=== PATIENT | male | born 1970 | race American Indian/Alaskan Native ===

== ENCOUNTER 2018-09-28 14:08 | Emergency (ER) | payer OTHER ==
[2018-09-28 14:21] VITALS: BMI 29.2
--- NOTE | 2018-09-28 16:09 | ED PDOC ---
Arrival/HPI - General Chief Complaint: Lower Extremity Problem/Injury Historian: Patient - History of Present Illness Narrative History of Present Illness (Text): 09/28/18 15:56 48yo male with no pmhx who present with complaint of left inner thigh pain that radiates posteriorly to his proximal lower leg x one week. Describes pain as throbbing and intermittent. No relieving/exacerbating factors. Denies trauma, calf pain, chest pain, SOB, lower back pain, saddle anesthesia, fever, chills ,swelling, redness, any other complaint. Past Medical History - Provider Review Nursing Documentation Reviewed: Yes - Psychiatric Hx Substance Use: Yes Family/Social History - Physician Review Nursing Documentation Reviewed: Yes Family/Social History: Unknown Family HX Smoking Status: Heavy Smoker > 10 Cigarettes Daily Hx Alcohol Use: Yes Frequency of alcohol use: Socially Hx Substance Use: Yes Substance used: marijuana Allergies/Home Meds Allergies/Adverse Reactions: Allergies No Known Allergies Allergy (Verified 09/28/18 14:21) Review of Systems - Physician Review All systems were reviewed & negative as marked: Yes - Review of Systems Constitutional: Normal Eyes: Normal ENT: Normal Respiratory: Normal Cardiovascular: Normal Gastrointestinal: Normal Genitourinary Male: Normal Musculoskeletal: Arthralgias (Left leg pain) Skin: Normal Neurological: Normal Endocrine: Normal Hemo/Lymphatic: Normal Psychiatric: Normal Physical Exam Vital Signs Reviewed: Yes Vital Signs Temp Pulse Resp BP Pulse Ox 09/28/18 14:09 98 F 73 18 156/80 H 98 Temperature: Afebrile Blood Pressure: Normal Pulse: Regular Respiratory Rate: Normal Appearance: Positive for: Well-Appearing, Non-Toxic, Comfortable Pain Distress: None Mental Status: Positive for: Alert and Oriented X 3 - Systems Exam Head: Present: Atraumatic, Normocephalic Pupils: Present: PERRL Extroacular Muscles: Present: EOMI Conjunctiva: Present: Normal Mouth: Present: Moist Mucous Membranes Neck: Present: Normal Range of Motion Respiratory/Chest: Present: Clear to Auscultation, Good Air Exchange. No: Respiratory Distress, Accessory Muscle Use Cardiovascular: Present: Regular Rate and Rhythm, Normal S1, S2. No: Murmurs Abdomen: No: Tenderness, Distention, Peritoneal Signs Back: Present: Normal Inspection Upper Extremity: Present: Normal Inspection. No: Cyanosis, Edema Lower Extremity: Present: NORMAL PULSES, Normal ROM, Tenderness (LEft proximal and distal thigh), Neurovascularly Intact, Capillary Refill < 2 s. No: Edema, CALF TENDERNESS, Corinna's Sign, Erythema, Deformity, Temperature Abnormalties Neurological: Present: GCS=15, CN II-XII Intact, Speech Normal Skin: Present: Warm, Dry, Normal Color. No: Rashes Psychiatric: Present: Alert, Oriented x 3, Normal Insight, Normal Concentration Medical Decision Making ED Course and Treatment: 09/28/18 19:20 PT in ED for stated history. He ambulated to ED and neurologically intact. His pain likely secondary to a muscle strain Doppler US ordered to r/o DVT Femur xray Toradol and valium On re evaluation he reported improvement of his pain. He was ambulatory Doppler US IMPRESSION: 1. No sonographic evidence for deep venous thrombosis in the visualized segments of the left lower extremity. Left femur xray - IMPRESSION: No significant or acute findings to account for/ related to the clinical presentation. Result was DW the pt and he was DC home with ibuprofen/flexeril. Referred to his PMd/ortho. - RAD Interpretation Radiology Orders: 09/28/18 14:37 FEMUR 1 VIEW LT [RAD] Stat 09/28/18 14:38 DUPLEX LOWER EXTRM VEIN LEFT [US] Stat - Medication Orders Current Medication Orders: Discontinued Medications Diazepam (Valium) 5 mg PO ONCE ONE; Protocol Stop: 09/28/18 15:28 Last Admin: 09/28/18 15:34 Dose: 5 mg Ketorolac Tromethamine (Toradol) 60 mg IM STAT STA Stop: 09/28/18 14:39 Last Admin: 09/28/18 15:28 Dose: 60 mg MAR Pain Assessment Document 09/28/18 15:28 (Rec: 09/28/18 15:32 [id number] Pain Reassessment Is this a pain reassessment? Yes Sleep Is patient sleeping during reassessment? No Presence of Pain Presence of Pain Yes Pain Scale Used Protocol: PSCALES Pain Scale Used Numeric Location Left, Right or Bilateral Left Pain Location Body Site Leg Description Intensity of Pain at present 8 IM Administration Charges Document 09/28/18 15:28 (Rec: 09/28/18 15:32 [id number] Charges for Administration # of IM Administrations 1 Disposition/Present on Arrival - Present on Arrival Any Indicators Present on Arrival: No History of DVT/PE: No History of Uncontrolled Diabetes: No Urinary Catheter: No History of Decub. Ulcer: No History Surgical Site Infection Following: None - Disposition Have Diagnosis and Disposition been Completed?: Yes Diagnosis: Leg pain Disposition: HOME/ ROUTINE Disposition Time: 17:30 Patient Plan: Discharge Condition: STABLE Discharge Instructions (ExitCare): Muscle and Bone Pain (DC) Additional Instructions: Follow up with your doctor/orthopedist Return to ED for any new or worsening symptoms Prescriptions: Cyclobenzaprine [Cyclobenzaprine HCl] 10 mg PO BID #10 tab RX: Ibuprofen [Motrin Tab] 600 mg PO Q6 #20 tab Referrals: Kaylah Jacobson MD [Medical Doctor] - Follow up with primary Ulisses Yuan III, MD [Medical Doctor] - Follow up with primary Forms: [employer] (Croatian)
--- NOTE | 2018-09-28 17:44 | RAD ---
Date of service: 09/28/2018 PROCEDURE: Left femur HISTORY: leg pain COMPARISON: None TECHNIQUE: Single AP view FINDINGS: No significant/acute osseous, articular or soft tissue abnormalities. IMPRESSION: No significant or acute findings to account for/ related to the clinical presentation. Limitations of the current examination: Single AP view only.
[2018-09-28 17:51] VITALS: BP 136/85; PULSE 80; RESP 16; TEMP 98; O2SAT 99
--- NOTE | 2018-09-28 18:34 | US ---
PROCEDURE: Left lower extremity venous US HISTORY: Leg pain and swelling. Evaluate for DVT. PHYSICIAN(S): Sonido Rodríguez MD. TECHNIQUE: Duplex sonography and color-flow Doppler with graded compression were used to evaluate the deep venous system of the left lower extremity. FINDINGS: The visualized deep venous system of the left lower extremity is sonographically normal and compressible. Normal wave forms and augmentation are seen. There is no sonographic evidence for deep venous thrombosis in the visualized segments of the left lower extremity. IMPRESSION: 1. No sonographic evidence for deep venous thrombosis in the visualized segments of the left lower extremity.
== END 2018-09-28 17:49 | disposition home or self-care (01) ==
LOC: ED 14:08
DX: M79.652 Pain in left thigh (principal); F17.210 Nicotine dependence, cigarettes, uncomplicated
CPT/HCPCS: 73551; 93971; 96372; 99284; J1885